=== PATIENT | female | born 1970 | race Caucasian/White ===

== ENCOUNTER → 2019-11-07 11:46 | Outpatient (BNVA) | payer OTHER, SELFPAY | PROVIDERS: Family Provider Family Medicine; PCP Family Medicine; Visit Provider Nurse Practitioner | DX: R50.9 Fever, unspecified (principal); B34.9 Viral infection, unspecified; J02.9 Acute pharyngitis, unspecified | CPT/HCPCS: 87071; 87635; 87880 ==

== ENCOUNTER 2020-02-09 11:58 | Emergency (ER) | payer OTHER, SELFPAY ==
[2020-02-09 12:05] VITALS: BP 151/96; PULSE 87; RESP 18; TEMP 36.4; O2SAT 97; BMI 25.8
--- NOTE | 2020-02-09 12:10 | ED_ITS ---
HPI - Back Pain/Injury General: Chief Complaint: Back Pain/Injury Stated Complaint: Back Pain Time Seen by Provider: 02/09/20 12:00 History of Present Illness: HPI Narrative: 49-year-old female presented emergency room complaining of low back pain with pain radiating down the left leg she denies any difficulty with bowel or bladder. She said she seemed to strain at a week ago when she was doing some heavy lifting around her home. She is previously had similar type injuries that were treated conservatively with physical therapy and medications. The last 2 days it is become increasingly worse including some numbness radiating down the leg. Discomfort goes down into the great toe. She reports that 4 to 5 years ago she had an MRI. She not had any advanced imaging since then. MD elicited complaint: back pain Pertinent past history: prior back pain Onset (ago): day(s) Timing: constant Severity: severe Similar Symptoms Previously: Yes Quality: sharp and tingling Location: lumbar spine Radiation: left upper leg and left leg below the knee Exacerbating factors: walking Relieving factors: immobilization and supine Context: while lifting, turning/twisting and bending Associated symptoms: Reports difficulty walking, numbness and weakness; Deny abdominal pain, arthralgias, chills, change in bowel habits, dysuria, fatigue, fecal incontinence, fever(s), hematuria, myalgias, nausea, syncope, tingling/numbness/burning, urinary frequency, urinary urgency or vomiting Treatments prior to arrival: NSAIDS and prescription analgesics Review of Systems Const: Denies: fever(s), chills or fatigue ENMT: Denies: throat pain, ear or mastoid pain, nasal discharge or nasal congestion Card: Denies: syncope Resp: Denies: dyspnea, productive cough or non-productive cough GI: Denies: abdominal pain, nausea, vomiting, fecal incontinence or change in bowel habits : Denies: dysuria, urinary urgency or hematuria Skin/Breast: Denies: rash or pruritus Neuro: Reports: difficulty walking PFS ED PFSH: Medical History (Updated 02/12/20 @ 07:48 by Papi San DO) Lumbar radiculopathy Physical Exam Const: COMMON NORMALS: no acute distress GENERAL APPEARANCE: cooperative and comfortable ORIENTATION/CONSCIOUSNESS: Yes awake, Yes oriented to person, Yes oriented to place and Yes oriented to time HENMT: COMMON NORMALS: normocephalic, atraumatic and hearing grossly normal bilaterally HEAD & SCALP: normocephalic and atraumatic Neck/C-Spine: COMMON NORMALS: no JVD Resp: COMMON NORMALS: normal respiratory effort, No retractions, No use of accessory muscles and clear to auscultation bilaterally AUSCULTATION: clear to auscultation bilaterally Cardio: COMMON NORMALS: no JVD, regular rate, regular rhythm and No murmurs present (Cardio) RATE: regular rate RHYTHM: regular rhythm GI: COMMON NORMALS: Soft to palpation and No hepatosplenomegaly present AUSCULTATION: Yes normoactive bowel sounds PALPATION: Yes Soft to palpation, No Tenderness to palpation present (GI), No Guarding due to palpation present (GI) and Yes No hepatosplenomegaly present Back/Pelvis: OTHER: D10 reflexes +24 to patellar tendon dorsum plantar flex strength 5 of 5 in the right leg somewhat diminished in the left leg there is only 3 of 5 strength in the great toe with dorsiflexion. Numbness in the leg consistent with an L4 V nerve root compression. Extremity: COMMON NORMALS: normal to inspection, capillary refill normal, no clubbing, cyanosis or edema, no calf tenderness and no pedal edema Neuro: SENSORIUM/ORIENTATION: Yes oriented to person, Yes oriented to place and Yes oriented to time Skin: COMMON NORMALS: no rashes or lesions noted GENERAL SKIN EXAM: no rashes or lesions noted Course Vital Signs: Vital signs: Vital Signs Temperature 97.6 F 02/09/20 12:05 Pulse Rate 87 02/09/20 12:52 Respiratory Rate 18 02/09/20 12:52 Blood Pressure 126/61 02/09/20 12:52 Pulse Oximetry 98 02/09/20 12:52 MDM - Back Pain/Injury MDM Narrative: Medical decision making narrative: Pain well controlled medications given in the emergency room will discharge home with steroids pain control medications and muscle relaxers follow-up with primary care doctor discussed activity limitations. Also advised to return if has any difficulty with urinary retention fecal incontinence or uncontrolled pain. Discharge Plan Discharge Patient Disposition: Home Clinical Impression: Lumbar radiculopathy Condition: Stable Prescriptions: New hydrocodone-acetaminophen 5-325 mg tablet 1 tab PO Q6H PRN (Reason: pain) Qty: 20 RF: 0 diclofenac sodium 75 mg tablet,delayed release (DR/EC) 75 mg PO Q12H PRN (Reason: pain) Qty: 20 RF: 0 Medrol (Alvino) 4 mg tablets,dose pack See Rx Instructions .ROUTE .COMPLEX Qty: 21 RF: 0 tizanidine 4 mg capsule 4 mg PO Q6H PRN (Reason: muscle spasticity) Qty: 30 RF: 0 Discharge Orders: Discharge Order (Routine); Ordered 02/09/20 Ordered By: Papi San Referrals: Alejandro Castro MD [Primary Care Provider] - Discharge Diet: Usual diet Discharge Activity: Limit activity as instructed Activity Restrictions/Additional Instructions: Avoid lifting anything greater than 10 pounds. Avoid any bending or twisting. Medications as above as needed for pain. Follow-up with your primary care doctor soon as you are able to evaluate for the need for advanced imaging and definitive care for your low back pain. If the back pain becomes uncontrollable return to the emergency room. If you have any difficulty with emptying your bladder or have incontinence of bowels return to the emergency room. Discharge Date/Time: 02/09/20 12:52 Coding Level of Care Code ED [employer] Check[employer] for Adonis Muniz
[2020-02-09 12:35] VITALS: RESP 18; O2SAT 98
[2020-02-09] MEDS: dexamethasone 10 mg/mL INJ IM (12:35)
[2020-02-09] MEDS: morphine 4 mg/mL SDV 1 mL IM (12:35)
[2020-02-09] MEDS: orphenadrine 30 mg/mL Inj 2 mL 60 MG IM (12:35)
[2020-02-09 12:52] VITALS: BP 126/61; PULSE 87; RESP 18; O2SAT 98
== END 2020-02-09 12:52 | disposition home or self-care (01) ==
PROVIDERS: Emergency Provider Family Medicine; PCP Family Medicine
DX: M54.16 Radiculopathy, lumbar region (principal)
CPT/HCPCS: 12345; 96372; 96374; 99281; 99283; J1100; J2270; J2360

== ENCOUNTER → 2022-11-23 09:23 | Outpatient (BNVA) | payer OTHER, SELFPAY | PROVIDERS: Family Provider Family Medicine; PCP Family Medicine; Visit Provider Family Medicine | DX: Z00.00 Encounter for general adult medical examination without abnormal findings (principal) | CPT/HCPCS: 80053; 80061; 84443 ==

== ENCOUNTER 2022-12-03 13:27 | Outpatient (CLI) | payer OTHER, SELFPAY ==
--- NOTE | 2022-12-03 13:33 | MM_ITS ---
WS: [id number] BILATERAL 3D TOMOSYNTHESIS DIGITAL SCREENING MAMMOGRAPHY WITH CAD CLINICAL INFORMATION: screening HISTORY: Screening mammogram. No current complaints. COMPARISON: Baseline TECHNIQUE: Bilateral CC and MLO views. FINDINGS: Scattered fibroglandular densities bilaterally. No suspicious focal mass, asymmetry, calcifications, or architectural distortion. No evidence of malignancy. Incidental punctate calcifications MM/[place] [id number] IMPRESSION: BI-RADS: 2-Benign FOLLOW UP: 1 Year Follow-up Recommend return to annual screening mammography.
== END 2022-12-03 13:28 | disposition home or self-care (01) ==
LOC: RAD 13:31 → MOBLMAM 13:32
PROVIDERS: PCP Family Medicine; Visit Provider Family Medicine
DX: Z12.31 Encounter for screening mammogram for malignant neoplasm of breast (principal)
CPT/HCPCS: 77063; 77067

== ENCOUNTER → 2023-01-13 16:01 | Outpatient (BNVA) | payer OTHER, SELFPAY | PROVIDERS: PCP Family Medicine; Visit Provider Family Medicine | DX: L98.9 Disorder of the skin and subcutaneous tissue, unspecified (principal) | CPT/HCPCS: 88304 ==

== ENCOUNTER 2023-01-27 08:01 | Day surgery (SDC) | payer OTHER, SELFPAY ==
[2023-01-25 12:42] VITALS: BMI 25.0
--- NOTE | 2023-01-27 08:10 | P.HP_ITS ---
Same Day Surgery H&P Indication for Procedure/HPI DATE OF PROCEDURE: January 27, 2023 CHIEF COMPLAINT/INDICATIONFOR SURGICAL PROCEDURE: need for screening colonoscopy PREOP DIAGNOSIS: screening for colorectal cancer PLANNED PROCEDURE: Operation Date: 01/27/23 09:20 Proposed Procedures p Colonoscopy 44449,Z12.11(Not Applicable) - Stan Mendosa MD Medications/Allergies* Home Medications Medication Instructions Recorded Confirmed Type cyclobenzaprine 5 mg tablet 5 mg PO ONCE PRN Breakthrough Pain 12/16/22 01/25/23 History ondansetron HCl 4 mg tablet 4 mg PO Q8H PRN Back Pain 12/16/22 01/25/23 History Allergies/Adverse Reactions Allergy/AdvReac Type Severity Reaction Status Date / Time Sulfa (Sulfonamide Allergy ADR-Gastrointestinal Verified 12/16/22 16:56 Antibiotics) Upset Pertinent History/Comorbid Conditions* Medical History (Updated 01/17/23 @ 12:35 by Alejandro Castro MD) Lumbar radiculopathy Social History Smoking and tobacco status: never smoked Alcohol intake: never Substance/Drug Use: never Pertinent Exam Findings alert, oriented x 3, clear to auscultation bilaterally, regular rate & rhythm and operative site marked General : Patient is well developed , no acute distress, oriented x3 Head : Normal cephalic, a-traumatic. Nose : Mucous membranes are without erythema. Lungs : Equal chest rise bilaterally, no use of accessory muscles, trachea is midline. CV : Rate and rhythm are normal. Abdomen : Soft, ND, NT, no g/r/m Extremities : No edema. Upper extremities are normal bilaterally. Back : non-tender to palpation, no CVA tenderness. Recommendations Surgery/Procedure today Other Plans: After a complete history, physical examination and review of all available clini ovidio data. I have offer screening colonoscopy as indicated by the current guidelines. I have discussed all the risks and benefits of the colonoscopy. Including, the risk of perforation requiring surgical intervention, rectal bleeding, incomplete colonoscopy requiring repeat procedure in 3 months, missed polyps, need for additional procedures. Patient shows understanding and wishes to proceed. Coding Level of Care Code Acute Code for Chg Fwd Diagnoses
[2023-01-27 08:13] VITALS: BP 149/86; PULSE 100; RESP 18; TEMP 36.6; O2SAT 98
[2023-01-27] MEDS: sodium chloride 0.9% 1,000 ML 30 ML IV (08:20)
[2023-01-27 08:22] LABS: OR HCG Qualitative Urine Negative (Negative)
--- NOTE | 2023-01-27 08:26 | ANES.PREANE2 ---
Pre-Anesthetic Assessment Height/Weight: Height 1.68 m Weight 70.307 kg Temp Pulse Resp BP Pulse Ox O2 Del Method 97.9 F 100 18 149/86 98 Room Air 01/27/23 08:13 01/27/23 08:13 01/27/23 08:13 01/27/23 08:13 01/27/23 08:13 01/27/23 08:13 Preop Diagnosis: screening for colorectal cancer Operation Date: 01/27/23 09:20 Proposed Procedures p Colonoscopy 33569,Z12.11(Not Applicable) - Stan Mendosa MD Familial anesthetic complications: none Was Beta Ashlie taken within 24 hours: N/A Was Clonidine taken within 24 hours: N/A Last intake: Intake Last Liquid Date 01/26/23 Last Liquid Time 23:00 Last Solid Date 01/25/23 Last Solid Time 18:00 Last Intake: 23:00 Social No alcohol and No tobacco Exam alert, oriented x 3, clear to auscultation bilaterally and regular rate & rhythm Airway Submandibular: within normal limits Cervical ROM: within normal limits Mallampati: Class II Dentition: full Pulmonary None reported CV/HEM mild MVP None reported Hepatic None reported GI None reported Metabolic None reported Musc/skel Lower Back Pain and Scoliosis Neuropsych Headache (monthly) Anesthetic Plan ASA status: 2 Anesthesia: MAC Risk of > 500 ml blood loss (7ml/kg in children): No Medications/Allergies Home Medications Medication Instructions Recorded Confirmed Last Taken Type sumatriptan succinate 100 mg tablet See Rx Instructions .Route 05/14/22 01/25/23 01/26/23 Rx .COMPLEX #9 tabs acetaminophen 300 mg-codeine 30 mg 1 tab PO Q8H PRN pain #28 tabs 08/20/22 01/25/23 01/26/23 Rx tablet tramadol 50 mg tablet 50 mg PO Q6H PRN pain #90 tabs 09/03/22 01/25/23 01/26/23 Rx scopolamine base 1 mg over 3 days 1 patch transdermal Q3D PRN nausea 11/23/22 01/25/23 01/26/23 Rx transdermal patch and vomiting #4 ea cyclobenzaprine 5 mg tablet 5 mg PO ONCE PRN Breakthrough Pain 12/16/22 01/25/23 01/26/23 History ondansetron HCl 4 mg tablet 4 mg PO Q8H PRN Back Pain 12/16/22 01/25/23 01/26/23 History Allergies Allergy/AdvReac Type Severity Reaction Status Date / Time Sulfa (Sulfonamide Allergy ADR-Gastrointestinal Verified 01/27/23 08:16 Antibiotics) Upset Current Medications Generic Name Dose Route Start Last Admin Trade Name Freq PRN Reason Stop Dose Admin Sodium Chloride 1,000 mls @ 30 mls/hr 01/27/23 08:15 01/27/23 08:20 Sodium Chloride 0.9% IV 01/28/23 08:14 30 mls/hr .Q24H ZENY Administration PFSH Anesthesia Medical History (Updated 01/17/23 @ 12:35 by Alejandro Castro MD) Lumbar radiculopathy Social History (System 02/12/20 @ 15:27 by Bailee Blanco) Smoking and tobacco status: never smoked Alcohol intake: never Substance/Drug Use: never Female Reproductive History Date of last menstrual period: 09/06/22 Data Anesthesia Cardiac Studies: No Data to Display
[2023-01-27 09:32] VITALS: BP 120/70; PULSE 80; RESP 16; TEMP 36.4; O2SAT 100
[2023-01-27 09:50] VITALS: BP 112/87; PULSE 80; RESP 18; O2SAT 99
--- NOTE | 2023-01-27 10:00 | ANE.PACU2 ---
Inpatient post-anesthesia follow up: Airway intact: Yes Vital signs: Temperature 97.6 F Pulse Rate 80 Respiratory Rate 18 Blood Pressure 112/87 Pulse Oximetry 99 Oxygen Delivery Me thod Room Air Oxygen Flow Rate Fraction of Inspir ed Oxygen Hydration adequate: Yes Nausea and vomiting: No Pain level: 1 Mental status: Baseline
== END 2023-01-27 10:14 | disposition home or self-care (01) ==
PROVIDERS: Anesthesiology; PCP Family Medicine; Visit Provider Surgery
PROC: 0DJD8ZZ Inspection of Lower Intestinal Tract, Via Natural or Artificial Opening Endoscopic (ICD-10-PCS; CPT 45378; principal; 2023-01-27 09:20)
DX: Z12.11 Encounter for screening for malignant neoplasm of colon (principal)
CPT/HCPCS: 45378; 84703; J2704; J7030

== ENCOUNTER → 2024-04-26 07:48 | Outpatient (BNVA) | payer OTHER, SELFPAY | PROVIDERS: PCP Family Medicine; Visit Provider Family Medicine | DX: Z00.00 Encounter for general adult medical examination without abnormal findings (principal); Z78.9 Other specified health status | CPT/HCPCS: 87624 ==

== ENCOUNTER 2024-05-16 08:28 | Outpatient (CLI) | payer OTHER, SELFPAY ==
--- NOTE | 2024-05-16 08:40 | MM_ITS ---
WS: [id number] BILATERAL SCREENING DIGITAL TOMOSYNTHESIS MAMMOGRAM WITH CAD HISTORY: screening COMPARISON: 12/03/2022 Bilateral CC and MLO views with tomosynthesis and synthetic mammography submitted. Computer aided det ection analyzed. Breast composition: There are scattered areas of fibroglandular density. No suspicious masses, microc alcifications or architectural distortion. MM/MM scr BI tomosynthesis [id number] IMPRESSION: BI-RADS: 2 - Benign. FOLLOW UP: 1 Year Follow-up
== END 2024-05-16 08:29 | disposition home or self-care (01) ==
LOC: RAD 08:30
PROVIDERS: PCP Family Medicine; Visit Provider Family Medicine
DX: Z12.31 Encounter for screening mammogram for malignant neoplasm of breast (principal); R92.323 Mammographic fibroglandular density, bilateral breasts
CPT/HCPCS: 77063; 77067